=== PATIENT | male | born 1960 | race Caucasian/White ===

== ENCOUNTER 2023-10-04 07:19 | Day surgery (SDC) | payer OTHER ==
[2023-10-04] MEDS: Lactated Ringers 1,000 ML IV SCH (07:58)
[2023-10-04] MEDS ORDERED: propofoL 50 ML ONE (09:50)
[2023-10-04] MEDS ORDERED: Lactated Ringers 1,000 ML IV SCH (10:45)
== END 2023-10-04 11:10 | disposition home or self-care (01) ==
LOC: MW.SDS 07:19
PROVIDERS: ATTEND Surgery
DX: Z12.11 Encounter for screening for malignant neoplasm of colon (principal); D12.8 Benign neoplasm of rectum; E78.5 Hyperlipidemia, unspecified; L91.8 Other hypertrophic disorders of the skin
CPT/HCPCS: 45380; J2704; J7120; 00811